=== PATIENT | female | born 1935 | race Caucasian/White ===

== ENCOUNTER 2016-05-30 11:41 | Inpatient (IN) | payer MEDICARE, OTHER ==
[~2016-05-30] VITALS: Ht 167.6 cm; Wt 56.7 kg
[~2016-05-30 11:41] MED LIST: ATIVAN1 MG PO; BENADRYL25 M3 PO; HALDOL1 MG PO; LASIX20 MG PO; NORVASC5 MG PO; THERAGRAN1 TA2 PO; ZYDIS PO
[2016-05-30 11:42] VITALS: BP 149/84
--- NOTE | 2016-05-30 11:42 | NUR ---
PT BIBA TO BED 7 AT THIS TIME.
--- NOTE | 2016-05-30 11:45 | NUR ---
[facility] C/O VOMITING X 3 DAYS W/ YELLOW BILE. HX: HTN, EPILEPSY, SCHIZOPHRENIA, ANXIETY, BIPOLAR, DEMENTIA, PARKINSON'S, COPD, BLIND IN RT EYE. DENIES ANY PAIN AT THIS TIME;PT IS AAOX3.NO ACUTE DISTRESS NOTED AT THIS TIME;HOIB ELEVATED;NEEDS ATTENDED;SAFETY MEASURES DONE;MD MADE AWARE OF PT'S CONDITION;
[2016-05-30] MEDS ORDERED: NACL 0.9% 1,000 ML IV SCH (11:48)
[2016-05-30] MEDS ORDERED: FAMOTIDINE 20 MG/2 ML VIAL IVP ONE (11:50)
[2016-05-30] MEDS ORDERED: ONDANSETRON 4 MG/2 ML VIAL IVP ONE (11:50)
[2016-05-30] MEDS ORDERED: cefTRIAXone 1,000 MG VIAL ONE (12:22)
[2016-05-30] MEDS ORDERED: GOOD SENSE OMEP20 MG PO (12:31)
[2016-05-30] MEDS ORDERED: TRIHEXYPHENIDYL5 MG PO (12:31)
[2016-05-30] MEDS ORDERED: RISPERDAL0.5 MG PO (12:31)
[2016-05-30] MEDS ORDERED: VITAMIN D1000 IU PO (12:32)
--- NOTE | 2016-05-30 12:35 | NUR ---
PT WENT TO CT SCAN;ACCOMPANIED BY TECH;NO ACUTE DISTRESS NOTED AT THIS TIME;
--- NOTE | 2016-05-30 13:52 | NUR ---
PT REFUSES STRAIGHT CATHETER;DR CAMARENA NOTIFIED.
--- NOTE | 2016-05-30 14:21 | NUR ---
PT REMOVED O2 CANNULA AND MONITORS;EXPLAINED TO PT THAT SHE NEEDS IT AND RISK OF NOT PUTTING ON NASAL CANNULA BUT PT REFUSES AND STATES" NO !I DON'T NEED IT"
--- NOTE | 2016-05-30 14:58 | NUR ---
Patient will be admitted to care of DR LI. Admited to TELE-124 B. Will go to room. Belongings list completed. Report to KHANH ENCARNACION.
[2016-05-30] MEDS ORDERED: MORPHINE SULFATE 4 MG/ML SYR IVP PRN (15:00)
[2016-05-30] MEDS ORDERED: BISACODYL 10 MG SUPP RC SCH (15:00)
[2016-05-30] MEDS ORDERED: MORPHINE SULFATE 2 MG/ML SYR IVP PRN (15:00)
[2016-05-30 15:15] VITALS: BP 112/71
--- NOTE | 2016-05-30 15:15 | NUR ---
PATIENT ARRIVED TO THE UNIT FROM ER VIA GURNEY. PATIENT AWAKE AND ALERT. NO S/S OF DISTRESS NOTED. PATIENT ON ROOM AIR. NO C/O PAIN. NO ACTIVE VOMITING AT THIS TIME. IV LINE NOTED TO THE RIGHT AC. SKIN IS INTACT. BED LOWERED WITH CALL LIGHT WITHIN REACH. WILL CONTINUE TO MONITOR
[2016-05-30] MEDS: DEXT 5% /NACL 0.9% 1,000 ML IV SCH (15:46)
[2016-05-30] MEDS ORDERED: ZYDIS PO SCH (17:00)
--- NOTE | 2016-05-30 19:25 | NUR ---
PATIENT REPORT GIVEN AT BEDSIDE. ENDORSED PATIENT IN STABLE CONDITION
--- NOTE | 2016-05-30 19:26 | NUR ---
RECD. RESTING IN BED, AWAKE, A/OX1. RESPIRATION EVEN AND UNLABORED. IV OF D5NS AT 100 ML/HR INFUSING, RIGHT AC G 20. ABLE TO USE CALL LIGHT AND VERBALIZED NEEDS BUT STUBBORN AT TIMES, SAY WORDS LIKE GO AWAY, I DON'T NEED YOU. PLAN OF CARE FOR THE SHIFT DISCUSSED. NEEDS REINFORCEMENT. DENIES PAIN 0/10.
[2016-05-30 20:00] VITALS: BP 134/75
--- NOTE | 2016-05-30 20:00 | NUR ---
Patient's Plan of Care was discussed and reviewed with CHEMICAL STRENGTH TESTER: RODY NATHAN
[2016-05-30] MEDS: SENNA 8.6 MG TAB PO SCH ×2 (21:00→21:42)
[2016-05-30] MEDS: risperiDONE 1 MG TAB PO SCH ×2 (21:00→21:41)
[2016-05-30] MEDS: DOCUSATE SODIUM 100 MG GELCAP PO SCH ×2 (21:00→21:41)
--- NOTE | 2016-05-30 21:41 | NUR ---
UNCOOPERATIVE, REFUSED ALL HER NIGHT MEDICATIONS. EXPLAINED SHE NEEDED MEDICATIONS TO HAVE BOWEL MOVEMENT. STILL REFUSED, SHOUTED "I DON'T LIKE IT".
[2016-05-30] MEDS: ONDANSETRON 4 MG/2 ML VIAL IVP PRN (22:09)
[2016-05-31] VITALS: BP 130/69
--- NOTE | 2016-05-31 | NUR ---
SLEEPING COMFORTABLY IN BED.
[2016-05-31] MEDS: DEXT 5% /NACL 0.9% 1,000 ML IV SCH ×2 (01:00→11:03)
--- NOTE | 2016-05-31 04:30 | NUR ---
CLEANSED BY SPINNING DOFFER, NO DIARRHEA NOTED.
[2016-05-31] MEDS: PANTOPRAZOLE 40 MG TABEC PO SCH (06:30)
--- NOTE | 2016-05-31 07:20 | NUR ---
CONDITION REMAIN STABLE. ENDORSED TO KHANH BISHOP FOR CONTINUITY OF CARE.
--- NOTE | 2016-05-31 07:21 | NUR ---
RECEIVED PT ASLEEP BUT EASILY AROUSABLE, AOX2 WITH NO S/S OF RESPIRATORY DISTRESS OR DISCOMFORT. WITH IV ACCESS ON RIGHT AC 20G INFUSING FLUIDS WELL. SKIN IS INTACT, DISCUSSED PLAN OF CARE, REINFORCEMENT NEEDED. SAFETY PRECAUTIONS ENFORCED. CALL LIGHT WITHIN REACH, WILL CONTINUE TO MONITOR.
[2016-05-31 08:00] VITALS: BP 142/87
--- NOTE | 2016-05-31 08:06 | NUR ---
PATIENT HAS BEEN SCREENED AND CATEGORIZED HIGH NUTRITION RISK. PATIENT WILL BE SEEN WITHIN 1-2 DAYS OF ADMISSION. 05/31/16-06/01/[address]
[2016-05-31] MEDS: TRIHEXYPHENIDYL 2 MG TAB PO SCH (09:14)
[2016-05-31] MEDS: VITAMIN D 400 IU TAB PO SCH (09:14)
[2016-05-31] MEDS: MULTIVITAMIN 1 TAB PO SCH (09:14)
[2016-05-31] MEDS: risperiDONE 1 MG TAB PO SCH ×2 (09:15→22:06)
[2016-05-31] MEDS: DOCUSATE SODIUM 100 MG GELCAP PO SCH ×2 (09:16→22:07)
[2016-05-31] MEDS: amLODIPine 5 MG TAB PO SCH (09:16)
--- NOTE | 2016-05-31 09:26 | NUR ---
PO MEDS GIVEN, PT STRONGLY REFUSED HEPARIN
--- NOTE | 2016-05-31 11:12 | NUR ---
PT ASLEEP AT THIS TIME, KEPT CLEAN AND DRY. WILL CONTINUE TO MONITOR.
--- NOTE | 2016-05-31 11:31 | NUR ---
DR LI AT NURSES' STATION
--- NOTE | 2016-05-31 11:35 | NUR ---
INFORMED DR LI RE: PHOSPORUS LEVEL, NO NEW ORDERS
[2016-05-31] MEDS ORDERED: CLINICAL MONITORING MC PRN (11:55)
[2016-05-31] MEDS ORDERED: POTASSIUM CHLORIDE 10 MEQ TABER PO SCH (12:00)
[2016-05-31] MEDS ORDERED: MAG SULF 2000 MG/WATER PREMIX 50 ML IV SCH (12:00)
[2016-05-31] MEDS: METOCLOPRAMIDE 10 MG/2 ML INJ VIAL IVP SCH ×2 (12:08→22:14)
[2016-05-31] MEDS: ONDANSETRON 4 MG/2 ML VIAL IVP PRN (12:55)
--- NOTE | 2016-05-31 12:59 | NUR ---
PT VOMITED, ZOFRAN GIVEN PRN.
--- NOTE | 2016-05-31 13:01 | NUR ---
PT CHANGED, NOTICED THAT PT ALSO VOMITED KDUR THAT WAS GIVEN PO. WILL INFORM DR. LI
--- NOTE | 2016-05-31 13:15 | NUR ---
FAXED INITIAL REVIEW TO [facility] [phone] PHONE EWA [phone]
--- NOTE | 2016-05-31 13:30 | NUR ---
PT REFUSED SMALL BOWEL FOLLOW THROUGH. NOTIFIED DR. LI WELL MAJOR THAT WAS VOMITED. NO NEW ORDERS.
--- NOTE | 2016-05-31 15:28 | NUR ---
CHANGED PT BEDDINGS, KEPT CLEAN AND DRY, WILL CONTINUE TO MONITOR.
[2016-05-31] MEDS ORDERED: NACL 0.9% 1,000 ML IV SCH (15:40)
[2016-05-31 16:00] VITALS: BP 149/70
[2016-05-31] MEDS: DEXT 5% / NACL 0.9% 1,000 ML IV SCH (16:00)
[2016-05-31] MEDS: LORazepam 2 MG/ML VIAL IVP PRN (16:43)
[2016-05-31] MEDS: OLANZapine 5 MG TAB PO SCH (16:58)
[2016-05-31] MEDS ORDERED: CLINDAMYCIN 600 MG in DEXTROSE 5% 50 ML IV SCH (18:00)
--- NOTE | 2016-05-31 18:43 | NUR ---
DR LI AT NURSES STATION, NOTIFIED AGAIN ABOUT POTASSIUM LEVEL, NO NEW ORDERS.
--- NOTE | 2016-05-31 19:15 | NUR ---
RECD. RESTING IN BED, AWAKE, A/OX2. RESPIRATION EVEN AND UNLABORED. IV OF D5NS AT 100 ML/HR INFUSING RIGHT AC G 20. APPEARS WEAK AND SLEEPY. PLAN OF CARE FOR THE SHIFT DISCUSSED. NEEDS REINFORCEMENT. NO NV/ NOTED. REFUSED BILATERAL SEQUENTIALS. DENIES PAIN 0/10.
--- NOTE | 2016-05-31 19:16 | NUR ---
ENDORSED PT TO JUDSON FINE IN STABLE CONDITION FOR CONTINUITY OF CARE
--- NOTE | 2016-05-31 20:30 | NUR ---
PUT UP HEAD OF BED TO 40 DEGREES BUT PATIENT REFUSED. EXPLAINED HER HEAD SHOULD BE ELEVATED, ABDOMEN IS DISTENDED. STILL REFUSED PREFERRED HEAD TOP BE LOW IN BED.
--- NOTE | 2016-05-31 22:00 | NUR ---
DUE MEDICATIONS FOR THE NIGHT GIVEN, COOPERATIVE.
[2016-05-31] MEDS: SENNA 8.6 MG TAB PO SCH (22:07)
--- NOTE | 2016-05-31 22:45 | NUR ---
CONFUSED, TAKE OUT HER GOWN, CRYING. REORIENTED TO HOSPITAL SETTING.
[2016-06-01] MEDS: LORazepam 2 MG/ML VIAL IVP PRN ×2 (00:31→20:04)
--- NOTE | 2016-06-01 00:31 | NUR ---
AGITATED, SHOUTING. MEDICATED WITH ATIVAN BY KHANH DUKE ORDERED BY .
--- NOTE | 2016-06-01 01:30 | NUR ---
STILL AWAKE, CLAPPING HER HANDS. INSTRUCTED TO KEEP QUIET. UNCOOPERATIVE.
--- NOTE | 2016-06-01 03:00 | NUR ---
SLEEPING COMFORTABLY IN BED.
[2016-06-01] MEDS ORDERED: CLINDAMYCIN 600 MG in DEXTROSE 5% 50 ML IV SCH (05:00)
[2016-06-01] MEDS: METOCLOPRAMIDE 10 MG/2 ML INJ VIAL IVP SCH ×3 (05:00→20:44)
--- NOTE | 2016-06-01 05:00 | NUR ---
PULLED OUT IV, REFUSED TO BE INSERTED WITH A NEW ONE.
--- NOTE | 2016-06-01 06:00 | NUR ---
CONFUSED, SHOUTING IN BED BUT WHEN ASKED IF SHE NEEDS ANYTHING, STATED "NOTHING".
--- NOTE | 2016-06-01 06:15 | NUR ---
REFUSED BLOOD DRAW REPORTED BY HELP DESK ANALYST. STILL CONFUSED AND UNCOOPERATIVE.
[2016-06-01] MEDS: PANTOPRAZOLE 40 MG TABEC PO SCH (06:30)
[2016-06-01 08:00] VITALS: BP 150/92
[2016-06-01] MEDS: DOCUSATE SODIUM 100 MG GELCAP PO SCH ×2 (09:00→21:00)
[2016-06-01] MEDS: risperiDONE 1 MG TAB PO SCH ×2 (09:00→21:00)
[2016-06-01] MEDS: amLODIPine 5 MG TAB PO SCH (09:00)
[2016-06-01] MEDS: TRIHEXYPHENIDYL 2 MG TAB PO SCH (09:00)
[2016-06-01] MEDS: VITAMIN D 400 IU TAB PO SCH (09:00)
[2016-06-01] MEDS: MULTIVITAMIN 1 TAB PO SCH (09:00)
--- NOTE | 2016-06-01 09:12 | NUR ---
FAZED CONCURRENT REVIEW TO [facility] [phone] PHONE EWA [phone]
--- NOTE | 2016-06-01 09:26 | NUR ---
PT REFUSED DUE MEDS, PAGE DR. LI. WILL FOLLOW UP.
--- NOTE | 2016-06-01 10:00 | NUR ---
DR. LI IN TO SEE PT. AWARE PT REFUSED MEDS AND BREAKFAST.
--- NOTE | 2016-06-01 10:20 | NUR ---
FAMILY AT BEDSIDE. QUESTIONS ANSWERED. FAMILY AWARE PT REFUSED BREAKFAST AND DUE MEDS. TRIED TO ASK PT'S SON TO FEED PT, PT'S SON STATED SHE YELLED AT HIM.
--- NOTE | 2016-06-01 10:50 | NUR ---
URINE STAIN NOTED ON BED PAD, CLEANED PT, TURNED AND REPOSITIONED PT. GOWN CHANGED.
[2016-06-01] MEDS ORDERED: MAGNESIUM OXIDE 400 MG TAB PO SCH (12:00)
[2016-06-01] MEDS ORDERED: SODIUM PHOSPHATE 118 ML ENEM RC SCH (12:00)
[2016-06-01] MEDS ORDERED: POTASSIUM CHLORIDE 10 MEQ TABER PO SCH (12:00)
--- NOTE | 2016-06-01 12:15 | NUR ---
PT REFUSED DUE MEDS.
--- NOTE | 2016-06-01 13:00 | NUR ---
PT HAD DIARRHEA, C-DIFF COLLECTED. CLEANED PT, BED SHEET AND GOWN CHANGED.
--- NOTE | 2016-06-01 14:05 | NUR ---
PT HAD MODERATE AMOUNT OF DIARRHEA. CLEANED PT. NO SOB AT THIS TIME.
--- NOTE | 2016-06-01 14:42 | NUR ---
06/01/16 RD INITIAL ASSESSMENT COMPLETED PLEASE REFER TO NUTRITION ASSESSMENT UNDER CARE ACTIVITY FOR ESTIMATED NUTRITIONAL NEEDS. RD RECOMMENDATIONS: 1. CONTINUE CLEAR LIQUID DIET TOLERATED PER MD 2. WHEN MEDICALLY APPROPRIATE CONSIDER ADVANCE DIET TOLERATED REGULAR WITH CONSIDERATION TO A SWALLOW EVALUATION FOR TEXTURE MODIFICATIONS NEEDED 3. ENCOURAGE ADEQUATE PO INTAKE 4. RD WILL F/U 3-5 DAYS; MODERATE RISK. HUMA BILLINGS RD
--- NOTE | 2016-06-01 15:30 | NUR ---
OFFERED PT WATER, PT HAD 300 ML WATER. OFFERED PT APPLE SOURCE. PT REFUSED.
--- NOTE | 2016-06-01 16:09 | NUR ---
PT HAD BM , CLEANED PT.
[2016-06-01] MEDS: OLANZapine 5 MG TAB PO SCH (17:00)
[2016-06-01] MEDS ORDERED: metroNIDAZOLE 500 MG TAB PO SCH (18:32)
--- NOTE | 2016-06-01 19:14 | NUR ---
FLAGYL GIVEN TO PT. PT SPIT OUT MEDICATION.
--- NOTE | 2016-06-01 19:25 | NUR ---
REPORT GIVEN TO
--- NOTE | 2016-06-01 19:26 | NUR ---
RECD. ON BED, AWAKE, ALERT VERY CONFUSED AND AGITATED, OFF RESTRAINTS. SHOUTING AND UNDRESSING SELF. REORIENTED TO HOSPITAL SETTING, WON'T LISTENED. SAFETY MEASURES ENFORCED. BED ON ALARM. IV SALINE LOCK AT THE LEFT FOREARM G 22, WRAPPED WITH KERLIX. WILL CONTINUE TO MONITOR.
[2016-06-01] MEDS: DEXT 5% / NACL 0.9% 1,000 ML IV SCH (20:00)
--- NOTE | 2016-06-01 20:04 | NUR ---
STILL UNCONTROLLABLE, RESTLESS, WITH AGITATION, MEDICATED WITH ATIVAN IVP PER MD ORDER BY KHANH LOVE.
--- NOTE | 2016-06-01 20:35 | NUR ---
NO AGITATION NOTED, RESTING COMFORTABLY SLEEP IN BED.
[2016-06-01] MEDS: SENNA 8.6 MG TAB PO SCH (21:00)
--- NOTE | 2016-06-01 22:28 | NUR ---
EYES CLOSED BUT ANSWERS WHEN QUESTIONS ASKED. REFUSED ALL HER NIGHT MEDICATIONS. WENT BACK TO SLEEP.
[2016-06-02] VITALS: BP 132/72
--- NOTE | 2016-06-02 | NUR ---
SLEEPING COMFORTABLY, OFF RESTRAINTS. WILL CONTINUE TO MONITOR.
--- NOTE | 2016-06-02 04:00 | NUR ---
STILL SLEEPING, OF RESTRAINTS.
[2016-06-02] MEDS: METOCLOPRAMIDE 10 MG/2 ML INJ VIAL IVP SCH ×3 (04:50→20:55)
[2016-06-02] MEDS: LORazepam 2 MG/ML VIAL IVP PRN ×2 (05:14→20:57)
--- NOTE | 2016-06-02 05:14 | NUR ---
WAKE UP, SHOUTING. VERY AGITATED. PUT BACK RESTRAINTS BUT ABLE TO TAKE OFF RESTRAINTS. TRYING TO PINCH NURSES. MEDICATED WITH ATIVAN 2 MG. IVP BY KHANH LOVE.
--- NOTE | 2016-06-02 05:34 | NUR ---
NO AGITATION, SLEEPING COMFORTABLY IN BED.
--- NOTE | 2016-06-02 05:45 | NUR ---
AWAKE AGAIN, VERY AGITATED, TRYING TO PULL OUT IV. REORIENTED TO HOSPITAL SETTING.
[2016-06-02] MEDS: DEXT 5% / NACL 0.9% 1,000 ML IV SCH (07:05)
[2016-06-02] MEDS: PANTOPRAZOLE 40 MG TABEC PO SCH (07:05)
--- NOTE | 2016-06-02 07:30 | NUR ---
ENDORSED TO AM NURSE FOR CONTINUITY OF CARE.
--- NOTE | 2016-06-02 07:31 | NUR ---
RECEIVED PT FROM PM RN. PT SEEN AT BEDSIDE. PT IS AAO TO SELF. VERY AGITATED AT THIS TIME, YELLING, KICKING OFF SHEETS, AND PULLING AT RESTRAINTS. ON ROOM AIR, NO S/S SOB AT THIS TIME. IV ON RIGHT FA PULLED OUT. PT HAS IVF RUNNING. PT IS ON CONTACT ISO FOR POSITIVE CDIFF. PT HAS BEEN HAVING WATERY DIARRHEA. SKIN IS INTACT, BRUISES NOTED ON BILATERAL UPPER ARMS. NO SKIN BREAKDOWN NOTED ON BILATERAL WRISTS FROM RESTRAINTS. SAFETY MEASURES CHECKED, CALL LIGHT LEFT AT BEDSIDE. WILL CONTINUE TO MONITOR.
[2016-06-02 08:00] VITALS: BP 144/96
--- NOTE | 2016-06-02 08:50 | NUR ---
PT HAD X1 MODERATE WATERY DIARRHEA. PT CLEANED. TURNED AND REPOSITIONED. LINEN AND GOWN CHANGED.
[2016-06-02] MEDS: DOCUSATE SODIUM 100 MG GELCAP PO SCH ×2 (09:00→20:55)
[2016-06-02] MEDS ORDERED: POTASSIUM CHLORIDE 40 MEQ, LIDOCAINE 1% 25 MG in NACL 0.9% 250 ML IV ONE (09:20)
--- NOTE | 2016-06-02 10:35 | NUR ---
ASSISTED PT WITH BREAKFAST TRAY. PT IS COOPERATIVE, BUT YELLS AND IS AGITATED AT TIMES.
[2016-06-02] MEDS: TRIHEXYPHENIDYL 2 MG TAB PO SCH (10:38)
[2016-06-02] MEDS: VITAMIN D 400 IU TAB PO SCH (10:38)
--- NOTE | 2016-06-02 10:38 | NUR ---
REINFORCEMENT NEEDED ON MEDICATION EDUCATION. PT TOLERATED WELL; WILL CONTINUE TO MONITOR.
[2016-06-02] MEDS: amLODIPine 5 MG TAB PO SCH (10:39)
[2016-06-02] MEDS: metroNIDAZOLE 500 MG TAB PO SCH ×3 (10:39→17:18)
[2016-06-02] MEDS: MULTIVITAMIN 1 TAB PO SCH (10:39)
[2016-06-02] MEDS: risperiDONE 1 MG TAB PO SCH ×2 (10:39→20:55)
[2016-06-02] MEDS: DEXT 5% / NACL 0.45% 1,000 ML IV SCH ×2 (10:40→20:55)
--- NOTE | 2016-06-02 11:54 | NUR ---
CM NOTE CONCURRENT REVIEW FAXED TO [facility] / FAX# [phone], ATTN: EWA #[phone]
--- NOTE | 2016-06-02 12:00 | NUR ---
PT HAD X1 MODERATE WATERY DIARRHEA. PT CLEANED. TURNED AND REPOSITIONED. LINEN AND GOWN CHANGED.
--- NOTE | 2016-06-02 12:05 | NUR ---
PT IS RESTLESS, YELLING; PT STATING, "I DON'T WANT TO WEAR CLOTHES. I DON'T WANT WATER. LEAVE ME ALONE". PT REPOSITIONED AT THIS TIME.
--- NOTE | 2016-06-02 13:23 | NUR ---
SS NOTE: SENT CURRENT MICROBIOLOGY TO [facility], RECEIVED FAX CONFIRMATION
--- NOTE | 2016-06-02 13:30 | NUR ---
REINFORCEMENT NEEDED ON MEDICATION EDUCATION. PT TOLERATED WELL; WILL CONTINUE TO MONITOR.
--- NOTE | 2016-06-02 15:00 | NUR ---
PT SLEEPING AT THIS TIME. NO S/S DISTRESS OR SOB. WILL CONTINUE TO MONITOR.
[2016-06-02 16:00] VITALS: BP 115/82
--- NOTE | 2016-06-02 16:00 | NUR ---
DR LI AT NURSING STATION. UPDATED MD ON PATIENT CONDITION. NOTIFIED MD THAT PATIENT'S HR IS IRREGULAR RANGING FROM 75 TO 140 AT TIMES. MD AWARE. WILL FOLLOW UP ON ORDERS.
[2016-06-02] MEDS ORDERED: metroNIDAZOLE 500 MG TAB PO SCH (17:00)
[2016-06-02] MEDS: OLANZapine 5 MG TAB PO SCH (17:18)
--- NOTE | 2016-06-02 17:18 | NUR ---
REINFORCEMENT NEEDED ON MEDICATION EDUCATION. PT TOLERATED WELL; WILL CONTINUE TO MONITOR.
--- NOTE | 2016-06-02 18:00 | NUR ---
PT HAD X1 MODERATE WATERY DIARRHEA. PT CLEANED. TURNED AND REPOSITIONED. LINEN AND GOWN CHANGED.
--- NOTE | 2016-06-02 19:15 | NUR ---
REPORT GIVEN TO KHANH JIANG.
--- NOTE | 2016-06-02 19:16 | NUR ---
RECEIVED REPORT DAY RN FOR CONTINUITY OF CARE. PATIENT IS A&OX1, EXPLAINED PLAN OF CARE TO PATIENT, UNABLE TO VERBALIZE UNDERSTANDING. SHIFT ASSESSMENT DONE, VS TAKEN, STABLE. NO S/S OF RESPIRATORY DISTRESS NOTED ON ROOM AIR. NO S/S OF PAIN. PATIENT HAS BRUISING ON ARM BILATERALLY. IV TO LT WRIST PATIENT AND FLUSHED. RESTRAINTS REMOVED AND SKIN CHECKED, REAPPLIED. SAFETY PRECAUTIONS ENFORCED. WILL CONTINUE TO MONITOR.
[2016-06-02 20:00] VITALS: BP 123/77
[2016-06-02] MEDS: SENNA 8.6 MG TAB PO SCH (20:55)
--- NOTE | 2016-06-02 20:57 | NUR ---
DUE MEDICATIONS ADMINISTERED, TOLERATED WELL. PT HAD MODERATE SIZED DIARRHEA. CLEANED AND REPOSITIONED. WILL CONTINUE TO MONITOR.
[2016-06-03] VITALS: BP 138/74
--- NOTE | 2016-06-03 00:07 | NUR ---
VS TAKEN, STABLE. PT IS YELLING AND AGITATED. CHECKED RESTRAINTS. WILL CONTINUE TO MONITOR.
--- NOTE | 2016-06-03 02:07 | NUR ---
PATIENT IS SLEEPING AT THIS TIME, WILL CONTINUE TO MONITOR.
[2016-06-03] MEDS: LORazepam 2 MG/ML VIAL IVP PRN ×4 (04:23→21:43)
--- NOTE | 2016-06-03 04:23 | NUR ---
PATIENT IS AGITATED AND SCREAMING, ADMINISTERED ATIVAN PER MD ORDER. VS STABLE.
[2016-06-03] MEDS: METOCLOPRAMIDE 10 MG/2 ML INJ VIAL IVP SCH ×3 (05:38→21:43)
[2016-06-03] MEDS: DEXT 5% / NACL 0.45% 1,000 ML IV SCH (05:38)
--- NOTE | 2016-06-03 06:03 | NUR ---
IV LINE TO LEFT WRIST INFILTRATED. INSERTED NEW IV LINE TO RT WRIST. WILL CONTINUE TO MONITOR.
[2016-06-03] MEDS: PANTOPRAZOLE 40 MG TABEC PO SCH (06:30)
--- NOTE | 2016-06-03 07:19 | NUR ---
ENDORSED PATIENT TO EDNA RN FOR CONTINUITY OF CARE. PATIENT IS ASLEEP AT THIS TIME, IN STABLE CONDITION.
--- NOTE | 2016-06-03 07:20 | NUR ---
RECEIVED PT AWAKE, SCREAMING AND RESTLESS, REMOVING HER CLOTHES. NO S/S OF RESPIRATORY DISTRESS. WITH IV ACCESS AT RIGHT WRIST 22G INFUSING FLUIDS WELL. BRUISES OBSERVED ON BUE. WITH SOFT WRIST RESTRAINT ON BILATERAL WRISTS FOR SAFETY SKIN IS INTACT. SAFETY PRECAUTIONS ENFORCED. CALL LIGHT WITHIN REACH, WILL CONTINUE TO MONITOR.
[2016-06-03 08:00] VITALS: BP 136/73
[2016-06-03] MEDS: MULTIVITAMIN 1 TAB PO SCH (08:57)
[2016-06-03] MEDS: TRIHEXYPHENIDYL 2 MG TAB PO SCH (08:58)
[2016-06-03] MEDS: risperiDONE 1 MG TAB PO SCH ×2 (08:58→21:00)
[2016-06-03] MEDS: VITAMIN D 400 IU TAB PO SCH (08:58)
[2016-06-03] MEDS: amLODIPine 5 MG TAB PO SCH (08:58)
[2016-06-03] MEDS: metroNIDAZOLE 500 MG TAB PO SCH ×3 (08:58→17:00)
[2016-06-03] MEDS: DOCUSATE SODIUM 100 MG GELCAP PO SCH ×2 (09:00→21:00)
--- NOTE | 2016-06-03 09:20 | NUR ---
CHANGED PT WITH DATA SPECIALIST, RESTRAINTS REMOVED, BILATERAL WRISTS MONITORED. GOOD CAPILLARY REFILL, NO SIGNS OF BREAKDOWN. WILL CONTINUE TO MONITOR.
--- NOTE | 2016-06-03 09:30 | NUR ---
DUE MEDS GIVEN GIVEN, PT TOLERATED WELL. PT STILL RESTLESS, ADMINISTERED ATIVAN IVP PRN. KEPT CLEAN AND DRY. WILL CONTINUE TO MONITOR.
--- NOTE | 2016-06-03 10:11 | NUR ---
PT ASLEEP AT THIS TIME. WILL CONTINUE TO MONITOR.
--- NOTE | 2016-06-03 12:25 | NUR ---
NOTIFIED DR LI OF POTASSIUM LEVELS, WILL CARRY OUT NEW ORDERS
[2016-06-03] MEDS ORDERED: POTASSIUM CHLORIDE 60 MEQ, LIDOCAINE 1% 25 MG in NACL 0.9% 500 ML IV SCH (14:00)
--- NOTE | 2016-06-03 14:28 | NUR ---
PT QUIET AT THIS TIME WITH EPISODES OF YELLING. KEPT CLEAN AND DRY, RESTRAINT RELEASED FOR 15 MINUTES, GOOD CIRCULATION, NO S/S OF INJURY. WILL CONTINUE TO MONITOR.
[2016-06-03] MEDS ORDERED: MAG SULF 2000 MG/WATER PREMIX 50 ML IV ONE (15:40)
--- NOTE | 2016-06-03 15:47 | NUR ---
DR LI AT BEDSIDE, WILL CARRY OUT NEW ORDERS. AWARE OF PHOSPORUS LEVELS, NO ORDER.
[2016-06-03 16:00] VITALS: BP 147/74
--- NOTE | 2016-06-03 16:00 | NUR ---
FACE SHEET FAXED TO DR. ZARATE'S OFFICE
--- NOTE | 2016-06-03 16:10 | NUR ---
DR GREGORIO AT BEDSIDE
--- NOTE | 2016-06-03 16:26 | NUR ---
FAXED CONCURRENT REVIEW TO [facility] [phone] PHONE EWA [phone]
[2016-06-03] MEDS: OLANZapine 5 MG TAB PO SCH (17:00)
--- NOTE | 2016-06-03 19:29 | NUR ---
ENDORSED PT TO KHANH VICTORIA IN STABLE CONDITION FOR CONTINUITY OF CARE.
--- NOTE | 2016-06-03 19:30 | NUR ---
RECEIVED REPORT FROM DAY RN AT BEDSIDE, PATIENT IS RESTING IN BED, EASILY AWOKEN, AAOX1, CONFUSED, ON ROOM AIR, NO SOB OR SIGN OF DISTRESS AT THIS TIME. PATIENT ON SOFT WRIST RESTRAINTS, CIRCULATION GOOD CAP REFILL <3 SECONDS, NO SIGN OF INJURY. APPEARS RESTLESS. PATIENT MUMBLING WHEN SPEAKING. IV TO RIGHT WRIST PATENT AND INTACT WITH IVF INFUSING. DISCUSSED PLAN OF CARE WITH PATIENT, PATIENT UNABLE TO COMPREHEND. SAFETY MEASURES CHECKED, BED ALARM ON, CALL LIGHT WITHIN REACH. WILL CONTINUE TO CLOSELY MONITOR.
[2016-06-03] MEDS: SENNA 8.6 MG TAB PO SCH (21:00)
--- NOTE | 2016-06-03 21:55 | NUR ---
PM MEDS ADMINISTERED, PO MEDS NOT GIVEN, PATIENT REFUSING, PATIENT AGITATED, ADMINISTERED ATIVAN PER MD ORDER, WILL CONTINUE TO MONITOR.
[2016-06-03] MEDS: NACL 0.2% IV SCH (23:14)
[2016-06-03] MEDS: DEXT 5% IV SCH (23:14)
[2016-06-03] MEDS: POTASSIUM CHLORIDE IV SCH (23:14)
[2016-06-04] VITALS: BP 142/75
--- NOTE | 2016-06-04 00:30 | NUR ---
VITAL SIGNS STABLE, PATIENT RESTING QUIET, ON SOFT WRIST RESTRAINTS CIRCULATION GOOD, NO SIGN OF INJURY, CALL LIGHT WITHIN REACH. WILL CONTINUE TO CLOSELY MONITOR.
--- NOTE | 2016-06-04 02:20 | NUR ---
PATIENT RESTING IN BED QUIETLY, NO SOB OR SIGN OF DISTRESS, CALL LIGHT WITHIN REACH. WILL CONTINUE TO MONITOR.
--- NOTE | 2016-06-04 03:18 | NUR ---
PATIENT WAS YELLING FOR HELP, PATIENT MUMBLING. ASKED IF SHE NEEDED TO BE CHANGED, PATIENT SAID "YA". TURNED AND REPOSITIONED PATIENT, PATIENT HAD SOFT BM, REMOVED RESTRAINTS PATIENT TRIED TO HIT AND WAS BEING AGGRESSIVE, TRYING TO REMOVE GOWN. PATIENT STATING "LEAVE MY HAND ALONE." RESTRAINTS REAPPLIED. ADMINISTERED ATIVAN PER MD ORDER. CALL LIGHT WITHIN REACH WILL CONTINUE TO CLOSELY MONITOR.
[2016-06-04] MEDS: METOCLOPRAMIDE 10 MG/2 ML INJ VIAL IVP SCH ×3 (05:00→22:13)
--- NOTE | 2016-06-04 06:25 | NUR ---
PATIENT IV WAS INFILTRATED AND LEAKING, NEW IV STARTED TO RIGHT FOREARM 24G, PATIENT TOLERATED WELL, WILL CONTINUE TO CLOSELY MONITOR.
[2016-06-04] MEDS: PANTOPRAZOLE 40 MG TABEC PO SCH (06:30)
--- NOTE | 2016-06-04 07:25 | NUR ---
RECEIVED REPORT FROM NIGHT NURSE. PT IS CURRENTLY SLEEPING BUT AWAKENS TO NAME. PT IS ON ROOM AIR . IV TO RIGHT FA INFUSING WELL, SKIN INTACT WITH SACRAL REDNESS. INITIAL ASSESSMENT COMPLETED. ALL SAFETY PRECAUTIONS MET. CALL LIGHT WITHIN REACH. WILL CONTINUE TO MONITOR.
--- NOTE | 2016-06-04 07:25 | NUR ---
ENDORSED PATIENT TO DAY RN AT BEDSIDE, PATIENT IN STABLE CONDITION
[2016-06-04 08:00] VITALS: BP 126/76
[2016-06-04] MEDS: MULTIVITAMIN 1 TAB PO SCH (09:00)
[2016-06-04] MEDS: metroNIDAZOLE 500 MG TAB PO SCH (09:00)
[2016-06-04] MEDS: DOCUSATE SODIUM 100 MG GELCAP PO SCH ×2 (09:00→22:13)
[2016-06-04] MEDS: VITAMIN D 400 IU TAB PO SCH (09:00)
[2016-06-04] MEDS: amLODIPine 5 MG TAB PO SCH (09:00)
[2016-06-04] MEDS: risperiDONE 1 MG TAB PO SCH ×2 (09:00→22:13)
[2016-06-04] MEDS: TRIHEXYPHENIDYL 2 MG TAB PO SCH (09:00)
--- NOTE | 2016-06-04 09:21 | NUR ---
PT REFUSED ALL PO MEDICATIONS.
[2016-06-04] MEDS: LORazepam 2 MG/ML VIAL IVP PRN (09:49)
--- NOTE | 2016-06-04 11:45 | NUR ---
PT CURRENTLY SLEEPING. NO S/S OF DISTRESS OR DISCOMFORT NOTED.
[2016-06-04] MEDS ORDERED: METOCLOPRAMIDE IVP (11:55)
[2016-06-04] MEDS ORDERED: OLANZAPINE5 MG PO (11:55)
[2016-06-04] MEDS ORDERED: NOVAPLUS ONDA2 MG/M1 IVP (11:55)
[2016-06-04] MEDS ORDERED: MORPHINE SU2 MG/1 ML IVP (11:55)
[2016-06-04] MEDS ORDERED: ATIVAN2 MG/M1 IVP (11:55)
[2016-06-04] MEDS ORDERED: FLAGYL 500500 MG/100 IV (11:55)
[2016-06-04] MEDS ORDERED: MORPHINE SULF IVP (11:55)
[2016-06-04] MEDS: NACL 0.2% IV SCH ×2 (12:20→22:10)
[2016-06-04] MEDS: POTASSIUM CHLORIDE IV SCH ×2 (12:20→22:10)
[2016-06-04] MEDS: DEXT 5% IV SCH ×2 (12:20→22:10)
[2016-06-04] MEDS: metroNIDAZOLE 500 MG/NS PREMIX 100 ML IV SCH ×2 (13:10→22:12)
--- NOTE | 2016-06-04 14:05 | NUR ---
ALL NEEDS MET. PT CURRENTLY RESTING IN BED. CALL LIGHT WITHIN REACH. WILL CONTINUE TO MONITOR.
[2016-06-04 16:00] VITALS: BP 121/67
--- NOTE | 2016-06-04 16:45 | NUR ---
PT CURRENTLY SLEEPING. NO S/S OF DISTRESS NOTED. WILL CONTINUE TO MONITOR.
[2016-06-04] MEDS: OLANZapine 5 MG TAB PO SCH (17:00)
--- NOTE | 2016-06-04 17:16 | NUR ---
UNABLE TO GIVE PO MEDICATIONS. PT CURRENTLY SLEEPING, REFUSES TO TAKE MEDICATION. CALL LIGHT WITHIN REACH. WILL CONTINUE TO MONITOR
--- NOTE | 2016-06-04 19:25 | NUR ---
ENDORSED PLAN OF CARE TO NIGHT NURSE, PT IN STABLE CONDITION.
--- NOTE | 2016-06-04 19:35 | NUR ---
RECEIVED REPORT FROM KHANH GRAHAM AT BEDSIDE. INITIAL ASSESSMENT COMPLETED. PT AAOX1; CONFUSED. PT BEDBOUND. PT HAS IV TO RIGHT FA G 24; ASYMPTOMATIC, PATENT AND INTACT. ORIENTED PT TO ROOM AND SURROUNDINGS. PT NEEDS REINFORCEMENT. SAFETY/FALL RISK PRECAUTIONS IN PLACE. PT HAS SCDS ON. BED ALARM ON. WILL CONTINUE TO MONITOR PT.
[2016-06-04] MEDS: SENNA 8.6 MG TAB PO SCH (22:14)
--- NOTE | 2016-06-04 22:20 | NUR ---
PT TOLERATED 2100 MEDS WELL. PT STABLE IN BED. BED ALARM ON.
--- NOTE | 2016-06-04 23:14 | NUR ---
PT SLEEPING AT THIS TIME. NO SIGNS OF DISTRESS OR DISCOMFORT NOTED. BED ALARM ON.
[2016-06-05] VITALS: BP 135/73
--- NOTE | 2016-06-05 00:05 | NUR ---
PT WET. LINEN CHANGED PT REPOSITIONED/TURNED WITH HELP OF VINICIUS SHERMAN. BED ALARM ON.
--- NOTE | 2016-06-05 02:19 | NUR ---
ROUNDS MADE. PT SLEEPING COMFORTABLY, NO SIGNS OF DISTRESS OR DISCOMFORT NOTE. BED ALARM ON.
[2016-06-05] MEDS: metroNIDAZOLE 500 MG/NS PREMIX 100 ML IV SCH ×3 (04:35→21:48)
[2016-06-05] MEDS: METOCLOPRAMIDE 10 MG/2 ML INJ VIAL IVP SCH ×3 (04:36→21:49)
--- NOTE | 2016-06-05 04:40 | NUR ---
0500 MEDS GIVEN. PT SLEEPING AT THIS TIME, BED ALARM ON.
[2016-06-05] MEDS: PANTOPRAZOLE 40 MG TABEC PO SCH (05:32)
--- NOTE | 2016-06-05 05:32 | NUR ---
0600 PO MED CRUSHED AND GIVEN. PT TOLERATED IT WELL. WILL CONTINUE TO MONITOR PT.
--- NOTE | 2016-06-05 06:00 | NUR ---
PT TURNED/REPOSITIONED, LINEN CHANGED. WILL CONTINUE TO MONITOR PT.
--- NOTE | 2016-06-05 07:05 | NUR ---
RECEIVED REPORT FROM NIGHT NURSE. PT IS CURRENTLY SLEEPING BUT AWAKENS TO NAME. PT IS ON ROOM AIR . IV TO RIGHT FA INFUSING WELL, SKIN INTACT WITH SACRAL REDNESS. NO S/S OF DISTRESS NOTED. INITIAL ASSESSMENT COMPLETED. ALL SAFETY PRECAUTIONS MET. CALL LIGHT WITHIN REACH. WILL CONTINUE TO MONITOR.
--- NOTE | 2016-06-05 07:05 | NUR ---
ENDORSED PLAN OF CARE TO KHANH KOO PT IN STABLE CONDITION.
[2016-06-05 08:00] VITALS: BP 113/64
[2016-06-05] MEDS: TRIHEXYPHENIDYL 2 MG TAB PO SCH (09:00)
[2016-06-05] MEDS: MULTIVITAMIN 1 TAB PO SCH (09:00)
[2016-06-05] MEDS: VITAMIN D 400 IU TAB PO SCH (09:00)
[2016-06-05] MEDS: risperiDONE 1 MG TAB PO SCH ×2 (09:00→21:00)
[2016-06-05] MEDS: DOCUSATE SODIUM 100 MG GELCAP PO SCH ×2 (09:00→21:00)
[2016-06-05] MEDS: amLODIPine 5 MG TAB PO SCH (09:00)
--- NOTE | 2016-06-05 09:01 | NUR ---
PT REFUSES TO EAT BREAKFAST AND TAKE PO MEDICATIONS. ENCOURAGE PT TO EAT AND TAKE MEDICATIONS BUT PT STATES "LEAVE ME ALONE, I DON'T WANT ANYTHING" WILL CONTINUE TO MONITOR.
[2016-06-05] MEDS: NACL 0.2% IV SCH ×2 (10:13→21:47)
[2016-06-05] MEDS: POTASSIUM CHLORIDE IV SCH ×2 (10:13→21:47)
[2016-06-05] MEDS: DEXT 5% IV SCH ×2 (10:13→21:47)
--- NOTE | 2016-06-05 11:16 | NUR ---
CLEANED PT, ALL NEEDS MET. PT MUMBLES WORDS. CALL LIGHT WITHIN REACH. WILL CONTINUE TO MONITOR.
--- NOTE | 2016-06-05 12:51 | NUR ---
DUE MEDICATION GIVEN. ENCOURAGE PT TO EAT LUNCH. PT REFUSES AND GOES BACK TO SLEEP. ALL NEEDS MET CALL LIGHT WITHIN REACH.
[2016-06-05] MEDS: LORazepam 2 MG/ML VIAL IVP PRN (13:16)
--- NOTE | 2016-06-05 13:17 | NUR ---
PT IS AGITATED PULLING ON IV TAKING CLOTHES OFF. MEDICATED PER MD ORDERS, REPOSITION PT AND PROVIDED A BLANKET. CALL LIGHT WITHIN REACH. WILL CONTINUE TO MONITOR.
--- NOTE | 2016-06-05 14:27 | NUR ---
PT PULLED OUT IV TIP INTACT. WILL ATTEMPT IV INSERTION ONCE PT IS CALM.
--- NOTE | 2016-06-05 15:00 | NUR ---
NEW IV INSERTED TO LEFT HAND 22G, PT TOLERATED WELL. ALL NEEDS MET. WILL CONTINUE TO MONITOR.
[2016-06-05 15:59] VITALS: BP 136/68
--- NOTE | 2016-06-05 16:28 | NUR ---
PT CURRENTLY SLEEPING. NO S/S OF DISTRESS NOTED. WILL CONTINUE TO MONITOR.
[2016-06-05] MEDS: OLANZapine 5 MG TAB PO SCH (17:00)
--- NOTE | 2016-06-05 17:41 | NUR ---
ATTEMPTED TO FEED PT, PT REFUSES. PO MEDICATION NOT GIVEN.
--- NOTE | 2016-06-05 19:09 | NUR ---
RECEIVED REPORT FROM KHANH GRAHAM AT BEDSIDE. INITIAL ASSESSMENT COMPLETED. PT AAOX1; CONFUSED. PT BEDBOUND. PT HAS IV TO LEFT HAND G 22; ASYMPTOMATIC, PATENT AND INTACT. ORIENTED PT TO ROOM AND SURROUNDINGS. PT NEEDS REINFORCEMENT. SAFETY/FALL RISK PRECAUTIONS IN PLACE. PT HAS SCDS ON. BED ALARM ON. WILL CONTINUE TO MONITOR PT.
--- NOTE | 2016-06-05 19:09 | NUR ---
ENDORSED PLAN OF CARE TO NIGHT NURSE, PT IN STABLE CONDITION.
[2016-06-05] MEDS: SENNA 8.6 MG TAB PO SCH (21:00)
--- NOTE | 2016-06-05 21:53 | NUR ---
2100 MEDICATIONS GIVEN EXCEPT PO MEDS. PT REFUSED TO TAKE ANYTHING PO. I TRIED TO GIVE HER APPLE SAUCE TO SEE IF SHE WOULD EAT IT, BUT PT REFUSES. PT STATES "I DON'T WANT ANYTHING, GET OUT". WILL CONTINUE TO MONITOR PT.
[2016-06-06] VITALS: BP 128/69
--- NOTE | 2016-06-06 00:15 | NUR ---
CLEANED PT, LINEN CHANGED. PT REPOSITIONED. PT WANTS TO BE LEFT ALONE. EXPLAINED TO HER THAT WE ARE CLEANING HER. REINFORCEMENT NEEDED. CALL LIGHT WITHIN REACH.
--- NOTE | 2016-06-06 02:39 | NUR ---
PT AGITATED, PT REMOVED BLANKETS AND SHE THREW PILLOW ON THE FLOOD. CONVINCED PT TO RELAX AND LAY BACK IN BED. PT STABLE AT THIS TIME. WILL CONTINUE TO MONITOR PT.
[2016-06-06] MEDS: metroNIDAZOLE 500 MG/NS PREMIX 100 ML IV SCH ×3 (04:33→21:48)
[2016-06-06] MEDS: METOCLOPRAMIDE 10 MG/2 ML INJ VIAL IVP SCH ×3 (04:33→21:48)
--- NOTE | 2016-06-06 04:40 | NUR ---
0500 MEDICATIONS GIVEN. PT SLEEPING AT THIS TIME. NO SIGNS OF DISTRESS OR DISCOMFORT NOTED. WILL CONTINUE TO MONITOR PT.
[2016-06-06] MEDS: POTASSIUM CHLORIDE IV SCH (05:36)
[2016-06-06] MEDS: NACL 0.2% IV SCH (05:36)
[2016-06-06] MEDS: DEXT 5% IV SCH (05:36)
[2016-06-06] MEDS: PANTOPRAZOLE 40 MG TABEC PO SCH (06:13)
--- NOTE | 2016-06-06 06:13 | NUR ---
PT REFUSED TO TAKE 0630 PO MED. PT CHANGED, LINEN CHANGED. WILL CONTINUE TO MONITOR PT.
--- NOTE | 2016-06-06 07:26 | NUR ---
ENDORSED PLAN OF CARE TO KHANH WEISS. PT IN STABLE CONDITION.
--- NOTE | 2016-06-06 07:30 | NUR ---
RECEIVED REPORT FROM KHANH RUIZ. PT A/OX1 CONFUSED. PT BEDBOUND. PT HAS IV TO LEFT HAND G 22; ASYMPTOMATIC, PATENT AND INTACT, NO S/S OF RESPIRATORY DISTRESS OR DISCOMFORT NOTED, ORIENTED PT TO ROOM AND SURROUNDINGS. PT NEEDS REINFORCEMENT. SAFETY/FALL RISK PRECAUTIONS IN PLACE. BED ALARM ON. CALL LIGHT WITHIN REACH, WILL CONTINUE TO MONITOR PT.
[2016-06-06 08:00] VITALS: BP 122/62
[2016-06-06] MEDS: MULTIVITAMIN 1 TAB PO SCH (09:00)
[2016-06-06] MEDS: risperiDONE 1 MG TAB PO SCH ×3 (09:00→21:51)
[2016-06-06] MEDS: TRIHEXYPHENIDYL 2 MG TAB PO SCH (09:00)
[2016-06-06] MEDS: DOCUSATE SODIUM 100 MG GELCAP PO SCH ×3 (09:00→21:51)
[2016-06-06] MEDS: VITAMIN D 400 IU TAB PO SCH (09:00)
[2016-06-06] MEDS: amLODIPine 5 MG TAB PO SCH (09:00)
--- NOTE | 2016-06-06 09:10 | NUR ---
INFORMED PT HER DUE MEDICATIONS WERE DUE, PT REFUSED ALL MEDICATIONS AND SAID, "NO, I JUST WANT TO SLEEP." NO S/S OF RESPIRATORY DISTRESS OR DISCOMFORT NOTED, CALL LIGHT IS WITHIN REACH, WILL CONTINUE TO MONITOR.
--- NOTE | 2016-06-06 11:26 | NUR ---
06/06/16 RD FOLLOW UP COMPLETED PLEASE REFER TO NUTRITION ASSESSMENT UNDER CARE ACTIVITY FOR ESTIMATED NUTRITIONAL NEEDS. RD RECOMMENDATIONS: 1. CONTINUE REGULAR DIET TOLERATED AND ADJUST CONSISTENCY NEEDS NEEDED --NOTE PT PREVIOUS DIET WAS PUREE 2. ENCOURAGE ADEQUATE PO INTAKE 3. RD WILL F/U 3-5 DAYS; MODERATE RISK. HUMA BILLINGS RD
--- NOTE | 2016-06-06 11:30 | NUR ---
PT SLEEPING IN BED AT THIS TIME, CALL LIGHT WITHIN REACH, WILL CONTINUE TO MONITOR.
--- NOTE | 2016-06-06 13:45 | NUR ---
PT SLEEPING IN BED AT THIS TIME.
--- NOTE | 2016-06-06 14:23 | NUR ---
1200 SPOKE WITH MARINA AT [facility] REGARDING PT WITH ORDER FOR HOSPICE. MARINA STATED THAT SHE WAS CONTACTED FIRST BY A LOGAN OF [facility] THEN [facility] REGARDING STATUS OF BED AVAILABILITY TO RETURN. MARINA STATED THE SHE DOES NOT HAVE ANY ISOLATION BEDS AT THIS TIME AND DOES NOT ANTICIPATE ANY TILL AROUND THE . 1323 CALL PLACED TO [facility] AT [phone] AND LEFT A MESSAGE FOR A RETURN CALL REGARDING HOSPICE EVAL. 1410 CALLED AND SPOKE WITH PT'S SON CECILY AT [phone] REGARDING [facility]. CECILY STATED THAT HE DOES NOT HAVE ANY PREFERENCE FOR HOSPICE AND HE IS OKAY WITH [facility] IF THE PHYSICIAN RECOMMENDED IT. CECILY STATED THAT HE IS OKAY WITH ANY FACILITY THAT IS WILLING TO ACCEPT PT FOR ADMISSION. CECILY DID STATE THAT IT IS VERY STRESSFUL FOR HIM TO DEAL WITH HIS MOTHER IN HER CONFUSED STATE AND HE HAS CARDIAC ISSUES AND DOES NOT WANT TO BE STRESSED AT THIS TIME. HE DID STATE THAT HE HAS NEVER REALLY HAD A CLOSE RELATIONSHIP WITH HIS MOTHER BUT DOES WANT HER PLACED AND TO BE COMFORTABLE. 1420 CALLED [facility] AGAIN AND SPOKE TO NORRIS AND INFORMED HER THAT STILL HAVE NOT RECEIVED A CALL FROM ANYONE REGARDING STATUS OF HOSPICE OR PLAN FOR SNF PLACEMENT.
--- NOTE | 2016-06-06 15:45 | NUR ---
PT IS RESTING IN BED, NO S/S OF RESPIRATORY DISTRESS OR DISCOMFORT NOTED, CALL LIGHT WITHIN REACH WILL CONTINUE TO MONITOR.
[2016-06-06 16:00] VITALS: BP 125/88
[2016-06-06] MEDS ORDERED: MORPHINE SULFATE 2 MG/ML SYR IVP PRN (16:10)
[2016-06-06] MEDS ORDERED: MORPHINE SULFATE 4 MG/ML SYR IVP PRN (16:10)
[2016-06-06] MEDS: DEXT 5% /NACL 0.9% 1,000 ML IV SCH (16:40)
[2016-06-06] MEDS: OLANZapine 5 MG TAB PO SCH (17:00)
--- NOTE | 2016-06-06 17:30 | NUR ---
PT SLEEPING AT THIS TIME.
[2016-06-06] MEDS: LORazepam 2 MG/ML VIAL IVP PRN (18:12)
--- NOTE | 2016-06-06 19:30 | NUR ---
ASSUMED CARE OF PATIENT, AWAKE. CONFUSED. NO DISTRESS NOTED. IV OUT. GOWN OUT. NO COMPLAINS NOTED.
--- NOTE | 2016-06-06 19:35 | NUR ---
ENDORSED PT TO NIGHTSHIFT NURSE FOR CONTINUITY OF CARE, PT STABLE AT THIS TIME.
--- NOTE | 2016-06-06 20:00 | NUR ---
PERICARE. REPOSITIONED BY PROCESS IMPROVEMENT ENGINEER.
[2016-06-06] MEDS: SENNA 8.6 MG TAB PO SCH ×2 (21:00→21:51)
--- NOTE | 2016-06-06 21:30 | NUR ---
ASSISTED WITH EATING DINNER. IV INSERTED BY PROFESSOR OF SOCIAL WORK. PERICARE DONE. REPOSITIONED. CALL LIGHT WITHIN REACH.
--- NOTE | 2016-06-06 23:15 | NUR ---
RELINQUISH CARE TO GEGE RN, ENDORSED CARE AT BEDSIDE.
--- NOTE | 2016-06-06 23:16 | NUR ---
RECEIVED PT FROM JORGE CASSIDY PT SLEEPING , NOT DISTRESS NO;ESTRADA AT THIS TIME IV ON LEFT HAND GAUGE 22, NOT DISTRESS NO;ESTRADA AT THIS ;TIME.
[2016-06-07] VITALS: BP 133/59
--- NOTE | 2016-06-07 01:30 | NUR ---
PT SCREAMING ATIVAN WILL BE GIVEN ORDER
[2016-06-07] MEDS: LORazepam 2 MG/ML VIAL IVP PRN ×2 (01:31→18:51)
--- NOTE | 2016-06-07 04:00 | NUR ---
PT ON CLOSE MONITORING REPOSITIONED Q2H, SCREAMING ON AND OFF
[2016-06-07] MEDS: metroNIDAZOLE 500 MG/NS PREMIX 100 ML IV SCH ×3 (05:31→22:01)
[2016-06-07] MEDS: METOCLOPRAMIDE 10 MG/2 ML INJ VIAL IVP SCH ×3 (05:31→21:00)
[2016-06-07] MEDS: DEXT 5% /NACL 0.9% 1,000 ML IV SCH ×2 (05:40→18:51)
--- NOTE | 2016-06-07 06:15 | NUR ---
SPONGE BATH GIVEN, LINEN CHANGED PT COOPERATIVE , CONFUSED
[2016-06-07] MEDS: PANTOPRAZOLE 40 MG TABEC PO SCH (06:46)
--- NOTE | 2016-06-07 07:45 | NUR ---
RECEIVED REPORT FROM [facility].PT IS ASLEEP , CALM AND RELAX IV INTACT NO SX OF DISTRESS AT THIS TIME.
[2016-06-07 08:00] VITALS: BP 135/81
[2016-06-07] MEDS: DOCUSATE SODIUM 100 MG GELCAP PO SCH ×2 (09:00→20:52)
[2016-06-07] MEDS: risperiDONE 1 MG TAB PO SCH ×2 (09:09→20:52)
[2016-06-07] MEDS: amLODIPine 5 MG TAB PO SCH (09:09)
[2016-06-07] MEDS: TRIHEXYPHENIDYL 2 MG TAB PO SCH (09:09)
[2016-06-07] MEDS: MULTIVITAMIN 1 TAB PO SCH (09:10)
[2016-06-07] MEDS: VITAMIN D 400 IU TAB PO SCH (09:10)
--- NOTE | 2016-06-07 10:19 | NUR ---
HELD HEPARIN AT THIS TIME. PT HAVE SCDS IN PLACE. NOTED INCREASED BRUISING ON THE RUE. COLACE HELD DUE TO EPSIDOE OF LOOSE STOOLS. MADE AWARE Addendum: 06/07/16 at 1436 by Ma. Marysol Guillermo RN HELD HEPARIN AT THIS TIME. PT HAVE SCDS IN PLACE. NOTED INCREASED BRUISING ON THE RUE. COLACE HELD, DUE TO HISTORY OF LOOSE STOOLS IN THE PAST. PT ONLY HAD 1 BM TODAY. AND 2 BM YESTERDAY.
--- NOTE | 2016-06-07 11:41 | NUR ---
CALLED [facility] TO FOLLOW UP BED AVAILABILITY.SPOKE WITH FRED [phone] , NO BED AVAILABLE AT THIS TIME DUE TO PATIENTS ISOLATION PRECAUTION. WILL TALK TO DR GUILLERMO HERRERA: ISOLATION STATUS
--- NOTE | 2016-06-07 11:47 | NUR ---
SPOKE WITH DR LI RE: ISOLATION STATUS. PER , PT CDIFF INFECTION IS NOW COLONIZED. CLEAR ISOLATION. SPOKE WITH FRED FROM [facility]. WILL FAX ORDER TO [phone]
--- NOTE | 2016-06-07 13:02 | NUR ---
MEDS DUE GIVEN FOR THE PATIENT. ASSISTED THE PATIENT TO EAT LUNCH . FINISHED 50% MEAL TRAY NO REPORT OF PAIN
--- NOTE | 2016-06-07 15:00 | NUR ---
ROUNDS MADE. PT IS ASLEEP NO DISTRESS
[2016-06-07 16:00] VITALS: BP 137/70
--- NOTE | 2016-06-07 16:28 | NUR ---
SPOKE WITH CASSANDRA FROM [facility] PHONE [phone]. HE WAS STILL LOOKING FOR PLACEMENT THIS AM. RECEIVED ORDER THAT PATIENT IS COLONIZED AND DOES NOT NEED ISOLATION. HE WILL CONTACT MARINA AT [facility]. MARINA FROM [facility] SPOKE WITH CHARGE NURSE CAPRI CASSIDY ABOUT THE STOOLS THE PATIENT HAS HAD. I SPOKE WITH CASSANDRA FROM [facility] TO SPEAK WITH MARINA FROM [facility] ABOUT ROOM FOR THIS PATIENT. HE SAID HE WOULD AND WOULD SET UP TRANSPORT. I GAVE HIM THE PHONE NUMBER TO THE FLOOR AND TO SPEAK WITH CAPRI CASSIDY WHEN TRANSPORT IS SET UP.
[2016-06-07] MEDS: OLANZapine 5 MG TAB PO SCH (16:57)
--- NOTE | 2016-06-07 17:00 | NUR ---
DUE MEDS GIVEN ORDERED. PT NOT IN DISTRESS.
--- NOTE | 2016-06-07 17:29 | NUR ---
CASSANDRA FROM [facility] CALLED AND HE SAID THEIR NOT ABLE TO SET A INSULATION INSTALLER TONIGHT, THE AVAILABLE TIME IS BETWEEN 9;30 TO 10;00 AND ITS TOO LATE FOR THE [facility] PER MARINA. HE SAID THEY WILL ARRANGE INSULATION INSTALLER TMW AM.
--- NOTE | 2016-06-07 18:27 | NUR ---
PER CHARGE NURSE, [facility] TO RN ELIGIBILITY THE PATIENT TOMORROW 06/08/16 AT 1135
--- NOTE | 2016-06-07 18:55 | NUR ---
PATIENT IS ANXIOUS. SHOUTING AND CRYING ADMINISTERED LORAZEPAM VIA IVP CHANGED IVF.
--- NOTE | 2016-06-07 19:33 | NUR ---
ENDORSED TO NURSE FINE FOR CONT OF CARE.
--- NOTE | 2016-06-07 19:34 | NUR ---
RECD. RESTING IN BED, AWAKE, A/OX1. RESPIRATION EVEN AND UNLABORED. IV OF D5NS AT 75 ML/HR INFUSING LEFT HAND G22. COOPERATIVE, NO AGITATION NOTED. IV OF D5NS AT 75 ML/HR INFUSING LEFT HAND G 22. ON BILATERAL LEG SEQUENTIALS. PLAN OF CARE FOR THE SHIFT DISCUSSED. NEEDS REINFORCEMENT. DENIES PAIN 0/10.
--- NOTE | 2016-06-07 20:00 | NUR ---
Patient's Plan of Care was discussed and reviewed with ACCOUNTING MANAGER: RODY NATHAN
--- NOTE | 2016-06-07 20:55 | NUR ---
DUE PO MEDICATIONS GIVEN. TOLERATED WELL.
--- NOTE | 2016-06-07 21:10 | NUR ---
IV INFILTRATED, WILL INSERT LATER A NEW IV LINE.
--- NOTE | 2016-06-07 21:35 | NUR ---
NEW IV LINE INSERTED BY CHARGE NURSE TRISTA IN THE LEFT FOREARM G 24.
[2016-06-07] MEDS: SENNA 8.6 MG TAB PO SCH (22:12)
--- NOTE | 2016-06-07 22:15 | NUR ---
TELLS NURSE TO GET OUT OF THE ROOM. OCCASIONALLY ASKED FOR HER . REORIENTED TO HOSPITAL SETTING.
[2016-06-08] VITALS: BP 132/89
--- NOTE | 2016-06-08 | NUR ---
SLEEPING COMFORTABLY IN BED.
--- NOTE | 2016-06-08 03:09 | NUR ---
SHOUTS WHEN NEEDING TO BE CLEANED DUE TO INCONTINENCE.
[2016-06-08] MEDS: metroNIDAZOLE 500 MG/NS PREMIX 100 ML IV SCH (05:08)
[2016-06-08] MEDS: METOCLOPRAMIDE 10 MG/2 ML INJ VIAL IVP SCH (05:09)
[2016-06-08] MEDS: PANTOPRAZOLE 40 MG TABEC PO SCH (06:06)
--- NOTE | 2016-06-08 06:06 | NUR ---
COOPERATIVE, ABLE TO TAKE HER AM MEDICATION.
--- NOTE | 2016-06-08 07:25 | NUR ---
RESTING COMFORTABLY SLEEPING IN BED, RESPIRATION EVEN AND UNLABORED. CONDITION REMAIN STABLE. ENDORSED TO KHANH GUAN FOR CONTINUITY OF CARE.
--- NOTE | 2016-06-08 07:35 | NUR ---
PT LYING IN BED SLEEPING COMFORTABLY IN BED AND WAS IN NO DISTRESS. PT EASILY ROUSABLE AND VOICED NO C/O PAIN/ DISCOMFORT. SHIFT ASSESSMENT DONE AND CHARTED. PLAN OF CARE, MEDS, TREATMENTS AND SAFETY DISCUSSED WITH PT WITH QUESTIONABLE UNDERSTANDING. PT WENT BACK TO SLEEP AFTER. WILL CONTINUE TO CHECK ON PT.
[2016-06-08 08:00] VITALS: BP 135/71
[2016-06-08] MEDS: DEXT 5% /NACL 0.9% 1,000 ML IV SCH (08:35)
[2016-06-08] MEDS: MULTIVITAMIN 1 TAB PO SCH (09:30)
[2016-06-08] MEDS: VITAMIN D 400 IU TAB PO SCH (09:30)
[2016-06-08] MEDS: TRIHEXYPHENIDYL 2 MG TAB PO SCH (09:31)
[2016-06-08] MEDS: amLODIPine 5 MG TAB PO SCH (09:31)
[2016-06-08] MEDS: DOCUSATE SODIUM 100 MG GELCAP PO SCH (09:31)
[2016-06-08] MEDS: risperiDONE 1 MG TAB PO SCH (09:31)
--- NOTE | 2016-06-08 10:00 | NUR ---
NOTIFIED PT OF TRANSFER BACK TO [facility].
[2016-06-08 10:57] VITALS: BP 135/71
--- NOTE | 2016-06-08 11:10 | NUR ---
NOTIFIED PT'S SON CECILY AMBROSIO BY PHONE OF PT TRANSFERRING TO DAY TO [facility].
--- NOTE | 2016-06-08 11:20 | NUR ---
REPORT GIVEN BY PHONE TO LUISITO ROPER OF [facility].
--- NOTE | 2016-06-08 12:53 | NUR ---
PT TRANSFERRED TO [facility]IA [facility] IN STABLE CONDITION. ALL PT'S BELONGINGS SENT WITH PT.
== END 2016-06-08 12:55 | DRG 248 ==
LOC: MED 11:41 → MTU 14:54
PROVIDERS: ADMIT Internal Medicine Pulmonary Disease; ATTEND Internal Medicine Pulmonary Disease
DX: A04.7 Enterocolitis due to Clostridium difficile (principal); N17.9 Acute kidney failure, unspecified; K56.7 Ileus, unspecified; G20 Parkinson's disease; E86.0 Dehydration; I10 Essential (primary) hypertension; F02.80 Dementia in other diseases classified elsewhere, unspecified severity, without behavioral disturbance, psychotic disturbance, mood disturbance, and anxiety; F20.0 Paranoid schizophrenia; Z66 Do not resuscitate; Z51.5 Encounter for palliative care; E87.6 Hypokalemia; G30.9 Alzheimer's disease, unspecified; Z87.440 Personal history of urinary (tract) infections; Z79.899 Other long term (current) drug therapy